=== PATIENT | male | born 1970 | race Caucasian/White ===

== ENCOUNTER 2022-04-17 20:18 | Observation (INO) ==
[2022-04-17] MEDS ORDERED: NS 0.9% 500 ml BAG 500 ML IV ONE (20:35)
[2022-04-17] MEDS ORDERED: Enoxaparin 80 MG/0.8 ML SYR SUBCUT SCH (23:45)
[2022-04-18 01:47] LABS: ABS Basophils 0.1 10^3/ul (0-0.2); ABS Lymphocytes 0.8 10^3/ul (1.0-4.8); ABS Monocytes 0.6 10^3/ul (0-0.8); ABS Neutrophils 6.8 10^3/ul (1.5-7.7); Eosinophil % 0.4 %; Hematocrit 42 % (42-52); Hemoglobin 13.7 g/dL (14.0-18.0); Lymphocyte % 9.8 %; Mean Corpuscular HGB Conc 33 g/dL (31-36); Mean Corpuscular Hemoglobin 28 pg (27-31); Mean Corpuscular Volume 87 fL (80-94); Mean Platelet Volume 10.6 fL (7.4-10.4); Nucleated Red Blood Cells % 0.1; Platelet Count 106 10^3/uL (150-450); Red Blood Count 4.84 10^6 /uL (4.18-5.48); Red Cell Distribution Width 16 % (10-15); White Blood Count 8.4 10^3/uL (3.5-10.8)
[2022-04-18 02:42] LABS: Albumin 4.2 g/dL (3.2-5.2); Albumin/Globulin Ratio 1.5 (1-3); Calcium 9.4 mg/dL (8.6-10.3); Globulin 2.8 g/dL (2-4); Potassium 4.4 mmol/L (3.5-5.0); Total Bilirubin 3.2 mg/dL (0.2-1.0); eGFR CKD-EPI 92.3 (>60)
[2022-04-18 04:49] LABS: Hematocrit 40 % (42-52); Mean Corpuscular HGB Conc 33 g/dL (31-36); Mean Corpuscular Hemoglobin 28 pg (27-31); Mean Corpuscular Volume 87 fL (80-94); Red Blood Count 4.61 10^6 /uL (4.18-5.48); Red Cell Distribution Width 17 % (10-15); White Blood Count 6.9 10^3/uL (3.5-10.8)
[2022-04-18 05:04] LABS: INR 1.41 (0.89-1.11)
[2022-04-18 05:07] LABS: Albumin 4.2 g/dL (3.2-5.2); Albumin/Globulin Ratio 1.6 (1-3); Calcium 9.5 mg/dL (8.6-10.3); Direct Bilirubin 0.8 mg/dL (0.03-0.18); Globulin 2.7 g/dL (2-4); Indirect Bilirubin 2.5 mg/dL (0.3-1.0); Potassium 4.6 mmol/L (3.5-5.0); Total Bilirubin 3.3 mg/dL (0.2-1.0); Total Protein 6.9 g/dL (6.4-8.9); eGFR CKD-EPI 79.7 (>60)
[2022-04-18 05:10] LABS: ABS Basophils 0.1 10^3/ul (0-0.2); ABS Eosinophils 0.1 10^3/ul (0-0.6); ABS Lymphocytes 0.8 10^3/ul (1.0-4.8); ABS Monocytes 0.6 10^3/ul (0-0.8); ABS Neutrophils 5.4 10^3/ul (1.5-7.7); Eosinophil % 0.7 %; Lymphocyte % 11.4 %; Mean Platelet Volume 9.8 fL (7.4-10.4); Platelet Count 81 10^3/uL (150-450)
[2022-04-18] MEDS: Mometasone/Formoter 100/5 MDI INH SCH ×2 (08:07→19:00)
[2022-04-18] MEDS ORDERED: SPIRIVA Respimat (tiotropium) 2.5 mcg/inh Inhaler INH SCH (09:00)
[2022-04-18] MEDS ORDERED: Lactulose 30 ml UDC PO ONE (10:49)
[2022-04-18 11:26] LABS: TSH Ultra Thyroid Stim Horm 1.03 mcIU/mL (0.34-5.60)
[2022-04-18 16:36] LABS: Body Fluid Appearance Cloudy; Body Fluid Color Yellow; Body Fluid Source Peritonial Fluid
[2022-04-18 17:28] LABS: Body Fluid WBC 174 /mcL
[2022-04-18 18:07] VITALS: BP 140/91
[2022-04-18 19:55] LABS: Body Fluid Mono 82 %; Body Fluid Total Cells Counted 200
[2022-04-20 11:16] LABS: Lactate Dehydrogenase, BF 125 U/L
[2022-04-20 11:33] LABS: Glucose, BF 139 mg/dL
[2022-04-20 11:36] LABS: Fluid Type, Protein, Total PERITONEAL
[2022-04-20 11:38] LABS: Albumin, BF 2.5 g/dL; Fluid Type, Albumin PERITONEAL
== END 2022-04-18 19:00 | disposition home or self-care (01) ==
LOC: EDHOLD 20:18 → ED 20:18 → MEDTELE 04-18 02:34
PROVIDERS: ADMIT Internal Medicine; ATTEND Internal Medicine